=== PATIENT | male | born 1930 | race Caucasian/White ===

== ENCOUNTER 2016-05-04 13:59 | Outpatient (CLI) | payer MEDICARE, OTHER | END 2016-05-04 14:00 | disposition home or self-care (01) | DX: I48.91 Unspecified atrial fibrillation (principal); Z79.01 Long term (current) use of anticoagulants ==

== ENCOUNTER 2016-06-10 11:19 | Outpatient (CLI) | payer MEDICARE, OTHER | END 2016-06-10 11:20 | disposition home or self-care (01) | DX: I48.91 Unspecified atrial fibrillation (principal); Z79.01 Long term (current) use of anticoagulants ==

== ENCOUNTER 2016-07-01 15:53 | Outpatient (CLI) | payer MEDICARE, OTHER | END 2016-07-01 15:54 | disposition home or self-care (01) | DX: I49.9 Cardiac arrhythmia, unspecified (principal); R42 Dizziness and giddiness ==

== ENCOUNTER 2016-07-09 13:25 | Outpatient (CLI) | payer MEDICARE, OTHER | END 2016-07-09 13:26 | disposition home or self-care (01) | DX: I48.91 Unspecified atrial fibrillation (principal); Z79.01 Long term (current) use of anticoagulants ==

== ENCOUNTER 2016-08-03 13:42 | Outpatient (CLI) | payer MEDICARE, OTHER | END 2016-08-03 23:59 | disposition home or self-care (01) | DX: I48.91 Unspecified atrial fibrillation (principal); Z79.01 Long term (current) use of anticoagulants ==

== ENCOUNTER 2016-08-11 09:52 | Outpatient (CLI) | payer MEDICARE, OTHER | END 2016-08-11 09:53 | disposition home or self-care (01) | DX: I48.91 Unspecified atrial fibrillation (principal); Z79.01 Long term (current) use of anticoagulants ==

== ENCOUNTER 2016-08-20 14:35 | Outpatient (CLI) | payer MEDICARE, OTHER | END 2016-08-20 14:36 | disposition home or self-care (01) | LOC: LAB.F 14:35 | PROVIDERS: ATTEND Internal Medicine | DX: I48.91 Unspecified atrial fibrillation (principal); Z79.01 Long term (current) use of anticoagulants | CPT/HCPCS: 85610 ==

== ENCOUNTER 2016-08-27 10:21 | Outpatient (CLI) | payer MEDICARE, OTHER | END 2016-08-27 10:22 | disposition home or self-care (01) | LOC: LAB.F 10:21 | PROVIDERS: ATTEND Internal Medicine | DX: I48.91 Unspecified atrial fibrillation (principal); Z79.01 Long term (current) use of anticoagulants | CPT/HCPCS: 85610 ==

== ENCOUNTER 2016-08-27 15:24 | Outpatient (CLI) | payer MEDICARE, OTHER ==
--- NOTE | 2016-08-28 21:30 | XRAY Report ---
EXAM: BILATERAL SHOULDER RADIOGRAPHY EXAM DATE: 08/27/2016 03:54 PM. CLINICAL HISTORY: SHOULDER PAIN. COMPARISON: None. TECHNIQUE: 3 views each. FINDINGS: Bones: Normal. No fracture or bone lesion. Joints: Mild osteoarthritic changes noted. Soft tissues: The visualized hemithorax is unremarkable. No soft tissue swelling. 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 [facility] Referring Provider Line: [phone] SITE ID: [id number]
== END 2016-08-27 15:25 | disposition home or self-care (01) ==
LOC: DI.S 15:24
PROVIDERS: ATTEND Nurse Practitioner Family
DX: M19.011 Primary osteoarthritis, right shoulder (principal); M19.012 Primary osteoarthritis, left shoulder; I48.91 Unspecified atrial fibrillation; Z79.01 Long term (current) use of anticoagulants
CPT/HCPCS: 85610

== ENCOUNTER 2016-08-28 06:26 | Outpatient (CLI) | payer MEDICARE, OTHER | END 2016-08-28 06:27 | disposition critical access hospital (66) | LOC: EMS 06:26 | PROVIDERS: ATTEND Surgery | DX: R11.2 Nausea with vomiting, unspecified (principal) | CPT/HCPCS: A0425; A0427 ==

== ENCOUNTER 2016-08-28 06:58 | Emergency (ER) | payer MEDICARE, OTHER ==
[2016-08-28 07:53] LABS: BASOPHILS % (AUTO) 0.5 %; EOSINOPHILS # (AUTO) 0.1 10^3/uL (0.0-0.7); EOSINOPHILS % (AUTO) 0.7 %; HCT - HEMATOCRIT 38.8 % (42.0-52.0); HGB - HEMOGLOBIN 13.3 g/dL (14.0-18.0); LYMPHOCYTES % (AUTO) 12.8 %; MEAN CORPUSCULAR HEMOGLOBIN 29.9 pg (27.0-31.0); MEAN CORPUSCULAR HGB CONC 34.4 g/dL (32.0-36.0); MONOCYTES # (AUTO) 0.4 10^3/uL (0.0-1.0); NEUTROPHILS # (AUTO) 6.2 10^3/uL (1.5-6.6); RED BLOOD COUNT 4.45 10^6/uL (4.70-6.10); RED CELL DISTRIBUTION WIDTH 13.9 % (12.0-15.0); UNCORRECTED WHITE BLOOD COUNT 7.7 x10^3/uL; WHITE BLOOD COUNT 7.7 x10^3/uL (4.8-10.8)
[2016-08-28 08:00] LABS: BILIRUBIN,URINE NEGATIVE (NEGATIVE); PH,URINE 6.5 PH (5.0-7.5)
[2016-08-28 08:07] LABS: UA CHARGE (STRIP ONLY) YES; UR CULTURE IF IND NOT INDICATED
[2016-08-28 08:15] LABS: ALBUMIN/GLOBULIN RATIO 1.2 (1.0-2.2); BILIRUBIN,TOTAL 0.8 mg/dL (0.2-1.0); CALCIUM 8.8 mg/dL (8.5-10.3); CREATININE 0.6 mg/dL (0.6-1.2); TOTAL PROTEIN 6.9 g/dL (6.7-8.2)
[2016-08-28 08:19] LABS: INR 5.8 (0.8-1.2)
--- NOTE | 2016-08-28 08:42 | ED Physician Documentation ---
History of Present Illness - Stated complaint Stated Complaint: N/V - Chief complaint Chief Complaint: Abd Pain - Additonal information Additional information: pt is a poor historian and very [place] even with his hearing aids it seems he has a hx afib is on coumadin his INR has been high and he is in the ER for NV and abd pain and generally weak he denies MONTERROSO CP AP right now denies diarrhea denies bloody black BM denies urinary sx no fever denies any falls or HI Review of Systems Constitutional: denies: Fever, Chills Cardiac: denies: Chest pain / pressure Respiratory: denies: Dyspnea, Cough GI: reports: Abdominal Pain, Nausea, Vomiting, Diarrhea. denies: Bloody / black stool : denies: Dysuria Neurologic: reports: Generalized weakness Endocrine: reports: Easy bruising / bleeding Immunocompromised: denies: Immunocompromised PD PAST MEDICAL HISTORY - Past Medical History Cardiovascular: Atrial fibrillation Respiratory: None Neuro: TIA Endocrine/Autoimmune: None GI: GERD : None HEENT: Chronic vision loss, Chronic hearing loss Psych: None Musculoskeletal: None Derm: None - Past Surgical History Past Surgical History: Yes HEENT: Cataracts - Present Medications Home Medications: Ambulatory Orders Medication Instructions Recorded Confirmed Meloxicam 7.5 mg PO DAILY 08/23/12 08/28/16 Omeprazole 20 mg PO DAILY 08/23/12 08/28/16 Warfarin Sodium [Coumadin] 2 mg PO DAILY 08/23/12 08/28/16 [id number] CD [Cardizem Cd] 120 mg PO DAILY 08/23/12 08/28/16 Meclizine [Antivert] 25 mg PO Q6H PRN #20 tablet 11/07/13 08/28/16 Ondansetron HCl [Zofran] 4 mg PO Q6H PRN #15 tablet 11/07/13 08/28/16 Ondansetron Odt [Zofran] 4 mg TL Q6H PRN #10 tablet 08/28/16 - Allergies Allergies/Adverse Reactions: Allergies Allergy/AdvReac Type Severity Reaction Status Date / Time Sulfa (Sulfonamide AdvReac Unknown Anxiety Unverified 08/28/16 10:24 Antibiotics) - Social History Does the pt smoke?: No Smoking Status: Never smoker Does the pt drink ETOH?: Yes Does the pt have substance abuse?: No PD ED PE NORMAL - Vitals Vital signs reviewed: Yes - Neck Neck: Supple, no meningeal sign - Cardiac Cardiac: No: RRR (slightly irreg) - Respiratory Respiratory: No respiratory distress, Clear bilaterally - Abdomen Abdomen: Soft, Non tender - Derm Derm: Warm and dry - Neuro Neuro: Other (alert [place] rambles quite a bit when answering questions but seems orineted) - Psych Psych: Normal mood Results - Vitals Vitals: Vital Signs - 24 hr 08/28/16 08/28/16 06:59 09:19 Temperature 36.1 C L Heart Rate 63 85 Respiratory 16 12 Rate Blood Pressure 141/101 H 107/68 O2 Saturation 95 97 Oxygen O2 Source Room air - Labs Labs: Laboratory Tests 08/28/16 08/28/16 08/28/16 07:47 07:47 07:47 WBC 7.7 RBC 4.45 L Hgb 13.3 L Hct 38.8 L MCV 87.0 MCH 29.9 MCHC 34.4 RDW 13.9 Plt Count 257 MPV 8.0 Neut # 6.2 Lymph # 1.0 L [place] # 0.4 Eos # 0.1 Baso # 0.0 Absolute Nucleated RBC 0.00 Nucleated RBCs 0.0 PT 66.0 H INR 5.8 H* Sodium 138 Potassium 4.0 Chloride 105 Carbon Dioxide 25 Anion Gap 8.0 BUN 16 Creatinine 0.6 Estimated GFR (MDRD) 128 Glucose 129 H Calcium 8.8 Total Bilirubin 0.8 AST 22 ALT 20 Alkaline Phosphatase 35 L Troponin I Total Protein 6.9 Albumin 3.7 Globulin 3.2 Albumin/Globulin Ratio 1.2 Lipase 28 Urine Color Urine Clarity Urine pH Ur Specific [place] Urine Protein Urine Glucose (UA) Urine Ketones Urine Occult Blood Urine Nitrite Urine Bilirubin Urine Urobilinogen Ur Leukocyte Esterase Ur Microscopic Review Urine Culture Comments 08/28/16 08/28/16 07:47 07:50 WBC RBC Hgb Hct MCV MCH MCHC RDW Plt Count MPV Neut # Lymph # [place] # Eos # Baso # Absolute Nucleated RBC Nucleated RBCs PT INR Sodium Potassium Chloride Carbon Dioxide Anion Gap BUN Creatinine Estimated GFR (MDRD) Glucose Calcium Total Bilirubin AST ALT Alkaline Phosphatase Troponin I < 0.04 Total Protein Albumin Globulin Albumin/Globulin Ratio Lipase Urine Color YELLOW Urine Clarity CLEAR Urine pH 6.5 Ur Specific [place] 1.020 Urine Protein NEGATIVE Urine Glucose (UA) NEGATIVE Urine Ketones 40 H Urine Occult Blood NEGATIVE Urine Nitrite NEGATIVE Urine Bilirubin NEGATIVE Urine Urobilinogen 0.2 (NORMAL) Ur Leukocyte Esterase NEGATIVE Ur Microscopic Review NOT INDICATED Urine Culture Comments NOT INDICATED PD MEDICAL DECISION MAKING - ED course ED course: no NV in ER abd benign labs iuncluding cardiac normal CT neg will dc with zofran Departure - Departure Disposition: Home, Self Care Clinical Impression: Vomiting Qualifiers: Vomiting type: unspecified Vomiting Intractability: non-intractable Nausea presence: with nausea Qualified Code(s): R11.2 - Nausea with vomiting, unspecified Condition: Good Instructions: ED Diet Vomiting Diarrhea, ED Abdominal Pain Unkn Cause Prescriptions: Ondansetron Odt [Zofran] 4 mg TL Q6H PRN #10 tablet PRN Reason: Nausea / Vomiting Comments: Your tests are all fine - we did a blood count, checked your liver kidney pancreas functions, checked your electrolytes, checked your heart checked for a urine infection. The only significant abnormality was your high INR which you already knew about - I recommend you do not take your coumadin today or tomorrow and follow up with your PMD for a recheck INR Tuesday Your CT scan was OK too - you have some cysts in your liver and diverticulosis both of which are not new and were seen on prior exams Since you seem to be feeling better and your work up is reassuring, I think it is OK for you to go home with some nausea medication. Please follow up with your PMD for a recheck Tuesday And return if worse in any way - although the work up was reassuring, it does not mean nothing is wrong and if new symptoms develop or you worse, a repeat evaluation might reveal problems not presently apparent. And please follow up with your PMD about your blood pressure - it was high today
--- NOTE | 2016-08-28 10:33 | CT Preliminary Report ---
Exam: CT Abdomen/Pelvis W/O IMPRESSION: 1. Diverticulosis without CT findings of acute diverticulitis. No bowel obstruction, free fluid, free air or abscess. Appendix not seen. 2. Multiple low-density probable liver cysts once again seen. No new liver mass. 3. Hiatal hernia. 4. No acute abnormality seen. Examination otherwise as detailed above. [facility] SITE ID: [id number]
--- NOTE | 2016-08-28 10:36 | CT Report ---
EXAM: CT ABDOMEN AND PELVIS EXAM DATE: 08/28/2016 09:44 AM. CLINICAL HISTORY: Nv weakness. COMPARISONS: Ultrasound 02/28/2007. CT 07/08/2014.. TECHNIQUE: Routine helical CT imaging was performed through the abdomen and pelvis. IV contrast: None . Enteric contrast: No. Reconstructions: Coronal and sagittal. In accordance with CT protocol optimization, one or more of the following dose reduction techniques w ere utilized for this exam: automated exposure control, adjustment of mA and/or KV based on patient s ize, or use of iterative reconstructive technique. FINDINGS: Lung Bases: Hiatal hernia. Otherwise Unremarkable. Liver: Multiple low-attenuation foci are seen in both right and left lobes of liver corresponding to areas of cystic change seen on prior CT. No new liver mass. Gallbladder/Bile Ducts: Unremarkable. Spleen: Calcified granuloma. Otherwise unremarkable. Pancreas: Normal. Adrenal Glands: Normal. Kidneys: Normal. No masses or hydronephrosis. Peritoneal Cavity/Bowel: No bowel obstruction. No mass. No adenopathy. Diffuse diverticulosis greates t in the sigmoid colon. The appendix is not seen. No free fluid. No free air. No acute inflammatory c hange seen. Pelvic Organs: Urinary bladder unremarkable. Prostate and seminal vesicles unremarkable. Vasculature: Calcified atherosclerosis. No aneurysm. Bones: Dextroscoliosis centered at thoracolumbar junction. Diffuse spondylotic changes in thoracic an d lumbar spine. No bone lesions suspicious for malignancy. No acute abnormality. Other: None. IMPRESSION: 1. Diverticulosis without CT findings of acute diverticulitis. No bowel obstruction, free fluid, free air or abscess. Appendix not seen. 2. Multiple low-density probable liver cysts once again seen. No new liver mass. 3. Hiatal hernia. 4. No acute abnormality seen. Examination otherwise as detailed above. [facility] Referring Provider Line: [phone] SITE ID: [id number]
[2016-08-28 11:53] VITALS: BP 122/66
== END 2016-08-28 12:09 | disposition home or self-care (01) ==
LOC: EDUNIT# → ED 06:58
DX: R11.2 Nausea with vomiting, unspecified (principal); I48.91 Unspecified atrial fibrillation; Z79.01 Long term (current) use of anticoagulants; Z86.73 Personal history of transient ischemic attack (TIA), and cerebral infarction without residual deficits; K21.9 Gastro-esophageal reflux disease without esophagitis
CPT/HCPCS: 36415; 74176; 80053; 81001; 81003; 83690; 84484; 85025; 85610; 87086; 99283; 99284

== ENCOUNTER 2016-08-30 13:23 | Outpatient (CLI) | payer MEDICARE, OTHER | END 2016-08-30 13:24 | disposition home or self-care (01) | LOC: LAB.F 13:23 | PROVIDERS: ATTEND Internal Medicine | DX: I48.91 Unspecified atrial fibrillation (principal); Z79.01 Long term (current) use of anticoagulants | CPT/HCPCS: 85610 ==

== ENCOUNTER 2016-09-02 10:29 | Outpatient (CLI) | payer MEDICARE, OTHER | END 2016-09-02 10:30 | disposition home or self-care (01) | LOC: LAB.F 10:29 | PROVIDERS: ATTEND Internal Medicine | DX: I48.91 Unspecified atrial fibrillation (principal); Z79.01 Long term (current) use of anticoagulants | CPT/HCPCS: 85610 ==

== ENCOUNTER 2016-09-07 11:17 | Outpatient (CLI) | payer MEDICARE, OTHER ==
[2016-09-08 10:39] LABS: PSA FREE 1.45 ng/mL (0.16-2.81)
[2016-09-08 10:59] LABS: PSA TOTAL 11.11 ng/mL (0.000-2.000)
== END 2016-09-07 11:18 | disposition home or self-care (01) ==
LOC: LAB.F 11:17
PROVIDERS: ATTEND Internal Medicine
DX: I48.91 Unspecified atrial fibrillation (principal); R35.0 Frequency of micturition; Z12.5 Encounter for screening for malignant neoplasm of prostate; M79.1 Myalgia; Z79.01 Long term (current) use of anticoagulants
CPT/HCPCS: 36415; 84154; 85610; 85651; G0103; 84153

== ENCOUNTER 2016-09-14 13:48 | Outpatient (CLI) | payer MEDICARE, OTHER | END 2016-09-14 13:49 | disposition home or self-care (01) | LOC: LAB.F 13:48 | PROVIDERS: ATTEND Internal Medicine | DX: I48.91 Unspecified atrial fibrillation (principal); Z79.01 Long term (current) use of anticoagulants | CPT/HCPCS: 85610 ==

== ENCOUNTER 2016-09-21 10:36 | Outpatient (CLI) | payer MEDICARE, OTHER | END 2016-09-21 10:37 | disposition home or self-care (01) | LOC: LAB.F 10:36 | PROVIDERS: ATTEND Internal Medicine | DX: I48.91 Unspecified atrial fibrillation (principal); Z79.01 Long term (current) use of anticoagulants | CPT/HCPCS: 85610 ==

== ENCOUNTER 2016-09-28 09:33 | Outpatient (CLI) | payer MEDICARE, OTHER | END 2016-09-28 09:34 | disposition home or self-care (01) | LOC: LAB.F 09:33 | PROVIDERS: ATTEND Internal Medicine | DX: I48.91 Unspecified atrial fibrillation (principal); Z79.01 Long term (current) use of anticoagulants | CPT/HCPCS: 85610 ==

== ENCOUNTER 2016-10-05 11:06 | Outpatient (CLI) | payer MEDICARE, OTHER | END 2016-10-05 11:07 | disposition home or self-care (01) | LOC: LAB.F 11:06 | PROVIDERS: ATTEND Internal Medicine | DX: I48.91 Unspecified atrial fibrillation (principal); Z79.01 Long term (current) use of anticoagulants | CPT/HCPCS: 85610 ==

== ENCOUNTER 2016-10-13 10:21 | Outpatient (CLI) | payer MEDICARE, OTHER | END 2016-10-13 10:22 | disposition home or self-care (01) | LOC: LAB.F 10:21 | PROVIDERS: ATTEND Internal Medicine | DX: I48.91 Unspecified atrial fibrillation (principal); Z79.01 Long term (current) use of anticoagulants | CPT/HCPCS: 85610 ==

== ENCOUNTER 2016-10-15 08:58 | Outpatient (CLI) | payer MEDICARE, OTHER | END 2016-10-15 08:59 | disposition home or self-care (01) | LOC: LAB.F 08:58 | PROVIDERS: ATTEND Internal Medicine | DX: I48.91 Unspecified atrial fibrillation (principal) | CPT/HCPCS: 85610 ==

== ENCOUNTER 2016-10-18 10:34 | Outpatient (CLI) | payer MEDICARE, OTHER | END 2016-10-18 10:35 | disposition home or self-care (01) | LOC: LAB.F 10:34 | PROVIDERS: ATTEND Internal Medicine | DX: I48.91 Unspecified atrial fibrillation (principal) | CPT/HCPCS: 85610 ==

== ENCOUNTER 2016-10-21 12:40 | Outpatient (CLI) | payer MEDICARE, OTHER | END 2016-10-21 12:41 | disposition home or self-care (01) | LOC: LAB.F 12:40 | PROVIDERS: ATTEND Internal Medicine | DX: I48.91 Unspecified atrial fibrillation (principal); Z79.01 Long term (current) use of anticoagulants; M35.3 Polymyalgia rheumatica | CPT/HCPCS: 36415; 85610; 85651; 86140 ==

== ENCOUNTER 2016-10-28 10:19 | Outpatient (CLI) | payer MEDICARE, OTHER ==
[2016-10-28] MEDS ORDERED: LIDOCAINE 1% 50 ML MDV SUBQ ONE (11:43)
[2016-10-28] MEDS ORDERED: IOTHALAMATE MEGLUMINE 50 ML VIAL IVP ONE (11:43)
[2016-10-28] MEDS ORDERED: methylPREDNISolone ACETATE 40 MG/ML VIAL IM ONE (11:43)
--- NOTE | 2016-10-29 10:08 | XRAY Report ---
FLUOROSCOPIC INJECTION OF THE LEFT HIP JOINT WITH LOCAL ANESTHETIC AND DEPO-MEDROL 40 M10/28/2016 CLINICAL HISTORY: Patient has bilateral hip pain. Present exam is only a unilateral hip joint injec tion within the left hip under fluoroscopic guidance. TECHNIQUE: In discussing the procedure with the patient, he indicated he would prefer to only have t he left hip injected today. The left hip was the side that was most painful. FINDINGS: A PAR conference was held and informed consent was obtained. Patient's left hip was steri annmarie prepped with Betadine and Chloraprep. Sterile technique was used throughout the exam. A total of 10 mL of 1% Xylocaine was used in the skin and subcutaneous tissues of the left hip. Under fluoro scopic guidance, a 20 gauge 3-1/2 inch needle was placed into the left hip joint. Conray-60, 1 mL, w as injected and outlined the left hip joint. Following this, a mixture of 7 mL of 1% Xylocaine and 1 mL of Depo-Medrol 40 mg per mL was injected into the left hip joint. As soon as the injection was c ompleted, the patient was taken off the fluoroscopic table and briefly walked around the room. He no es significant symptomatic relief of his left hip pain. This further documented that the hip joint injection was successful. One image was taken to verify the successful entrance of the needle into the left hip joint. A total of 44 seconds was used for fluoroscopy. IMPRESSION: SUCCESSFUL LEFT HIP JOINT INJECTION UNDER FLUOROSCOPIC GUIDANCE. A TOTAL OF 7 ML OF 1% XYLOCAINE AND 1 ML OF DEPO-MEDROL 40 MG/ML WAS INJECTED INTO THE LEFT HIP JOINT. THE PATIENT NOTED I MMEDIATE RELIEF. JOB #: [id number] EXT JOB #:[id number]
== END 2016-10-28 10:20 | disposition home or self-care (01) ==
LOC: DI 10:19
PROVIDERS: ATTEND Orthopaedic Surgery
DX: M16.0 Bilateral primary osteoarthritis of hip (principal); I48.91 Unspecified atrial fibrillation; Z79.01 Long term (current) use of anticoagulants
CPT/HCPCS: 20610; 77002; 85610; J1030; Q9961

== ENCOUNTER 2016-10-28 14:25 | Outpatient (CLI) | payer MEDICARE, OTHER | END 2016-10-28 14:26 | disposition home or self-care (01) | LOC: LAB.F 14:25 | PROVIDERS: ATTEND Internal Medicine | DX: I48.91 Unspecified atrial fibrillation (principal); Z79.01 Long term (current) use of anticoagulants | CPT/HCPCS: 85610 ==

== ENCOUNTER 2016-11-04 11:01 | Outpatient (CLI) | payer MEDICARE, OTHER | END 2016-11-04 11:02 | disposition home or self-care (01) | LOC: LAB.F 11:01 | PROVIDERS: ATTEND Internal Medicine | DX: I48.91 Unspecified atrial fibrillation (principal); Z79.01 Long term (current) use of anticoagulants | CPT/HCPCS: 85610 ==

== ENCOUNTER 2016-11-11 13:51 | Outpatient (CLI) | payer MEDICARE, OTHER | END 2016-11-11 13:52 | disposition home or self-care (01) | LOC: LAB.F 13:51 | PROVIDERS: ATTEND Internal Medicine | DX: I48.91 Unspecified atrial fibrillation (principal); Z79.01 Long term (current) use of anticoagulants | CPT/HCPCS: 85610 ==

== ENCOUNTER 2016-11-15 13:08 | Outpatient (CLI) | payer MEDICARE, OTHER | END 2016-11-15 13:09 | disposition home or self-care (01) | LOC: SC 13:08 | PROVIDERS: ATTEND Internal Medicine Pulmonary Disease | DX: R06.81 Apnea, not elsewhere classified (principal); R06.83 Snoring; G47.10 Hypersomnia, unspecified; G31.84 Mild cognitive impairment of uncertain or unknown etiology | CPT/HCPCS: 99203; G0463; 99212 ==

== ENCOUNTER 2016-11-19 13:39 | Outpatient (CLI) | payer MEDICARE, OTHER | END 2016-11-19 13:40 | disposition home or self-care (01) | LOC: LAB.F 13:39 | PROVIDERS: ATTEND Internal Medicine | DX: I48.91 Unspecified atrial fibrillation (principal); Z79.01 Long term (current) use of anticoagulants | CPT/HCPCS: 85610 ==

== ENCOUNTER 2016-11-26 13:16 | Outpatient (CLI) | payer MEDICARE, OTHER | END 2016-11-26 13:17 | disposition home or self-care (01) | LOC: LAB.F 13:16 | PROVIDERS: ATTEND Internal Medicine | DX: I48.91 Unspecified atrial fibrillation (principal); Z79.01 Long term (current) use of anticoagulants | CPT/HCPCS: 85610 ==

== ENCOUNTER 2016-12-10 10:38 | Outpatient (CLI) | payer MEDICARE, OTHER | END 2016-12-10 10:39 | disposition home or self-care (01) | LOC: LAB.F 10:38 | PROVIDERS: ATTEND Internal Medicine | DX: I48.91 Unspecified atrial fibrillation (principal); Z79.01 Long term (current) use of anticoagulants | CPT/HCPCS: 85610 ==

== ENCOUNTER 2016-12-24 14:35 | Outpatient (CLI) | payer MEDICARE, OTHER | END 2016-12-24 14:36 | disposition home or self-care (01) | LOC: LAB.F 14:35 | PROVIDERS: ATTEND Internal Medicine | DX: I48.91 Unspecified atrial fibrillation (principal); Z79.01 Long term (current) use of anticoagulants | CPT/HCPCS: 85610 ==

== ENCOUNTER 2017-01-11 20:08 | Outpatient (CLI) | payer MEDICARE, OTHER | END 2017-01-11 20:09 | disposition home or self-care (01) | LOC: SC 20:08 | PROVIDERS: ATTEND Internal Medicine Pulmonary Disease | DX: G47.33 Obstructive sleep apnea (adult) (pediatric) (principal); G47.61 Periodic limb movement disorder; I48.91 Unspecified atrial fibrillation; Z68.27 Body mass index [BMI] 27.0-27.9, adult | CPT/HCPCS: 95810 ==

== ENCOUNTER 2017-01-21 13:06 | Outpatient (CLI) | payer MEDICARE, OTHER | END 2017-01-21 13:07 | disposition home or self-care (01) | LOC: LAB.F 13:06 | PROVIDERS: ATTEND Internal Medicine | DX: I48.91 Unspecified atrial fibrillation (principal); Z79.01 Long term (current) use of anticoagulants | CPT/HCPCS: 85610 ==

== ENCOUNTER 2017-01-25 14:07 | Outpatient (CLI) | payer MEDICARE, OTHER | END 2017-01-25 14:08 | disposition home or self-care (01) | LOC: SC 14:07 | PROVIDERS: ATTEND Nurse Practitioner Family | DX: G47.33 Obstructive sleep apnea (adult) (pediatric) (principal); G47.61 Periodic limb movement disorder; I48.91 Unspecified atrial fibrillation | CPT/HCPCS: 99214; G0463; 99212 ==

== ENCOUNTER 2017-01-28 12:34 | Outpatient (CLI) | payer MEDICARE, OTHER | END 2017-01-28 12:35 | disposition home or self-care (01) | LOC: LAB.F 12:34 | PROVIDERS: ATTEND Internal Medicine | DX: I48.91 Unspecified atrial fibrillation (principal); Z79.01 Long term (current) use of anticoagulants | CPT/HCPCS: 85610 ==

== ENCOUNTER 2017-02-04 15:16 | Outpatient (CLI) | payer MEDICARE, OTHER | END 2017-02-04 15:17 | disposition home or self-care (01) | LOC: LAB.F 15:16 | PROVIDERS: ATTEND Internal Medicine | DX: I48.91 Unspecified atrial fibrillation (principal); Z79.01 Long term (current) use of anticoagulants | CPT/HCPCS: 85610 ==

== ENCOUNTER 2017-02-25 23:21 | Outpatient (CLI) | payer MEDICARE, OTHER | END 2017-02-25 23:22 | disposition critical access hospital (66) | LOC: EMS 23:21 | PROVIDERS: ATTEND Surgery | DX: R42 Dizziness and giddiness (principal); R11.2 Nausea with vomiting, unspecified | CPT/HCPCS: A0425; A0427 ==

== ENCOUNTER 2017-02-25 23:51 | Emergency (ER) | payer MEDICARE, OTHER ==
[2017-02-26] MEDS ORDERED: ONDANSETRON 4 MG/2 ML VIAL IVP STA
[2017-02-26] MEDS ORDERED: SODIUM CHLORIDE 0.9% 500 ML IV ONE
[2017-02-26] MEDS ORDERED: ONDANSETRON 4 MG/2 ML VIAL ONE (00:09)
[2017-02-26 00:20] LABS: BASOPHILS # (AUTO) 0.1 10^3/uL (0.0-0.1); BASOPHILS % (AUTO) 0.6 %; EOSINOPHILS # (AUTO) 0.2 10^3/uL (0.0-0.7); EOSINOPHILS % (AUTO) 1.9 %; HCT - HEMATOCRIT 42.7 % (42.0-52.0); HGB - HEMOGLOBIN 14.5 g/dL (14.0-18.0); LYMPHOCYTES # (AUTO) 2.3 10^3/uL (1.5-3.5); LYMPHOCYTES % (AUTO) 26.9 %; MEAN CORPUSCULAR HEMOGLOBIN 30.4 pg (27.0-31.0); MEAN CORPUSCULAR HGB CONC 33.9 g/dL (32.0-36.0); MEAN CORPUSCULAR VOLUME 89.7 fL (80.0-94.0); MEAN PLATELET VOLUME 8.6 fL (7.4-11.4); MONOCYTES # (AUTO) 0.7 10^3/uL (0.0-1.0); MONOCYTES % (AUTO) 8.2 %; NEUTROPHILS # (AUTO) 5.3 10^3/uL (1.5-6.6); NEUTROPHILS % (AUTO) 62.4 %; RED BLOOD COUNT 4.76 10^6/uL (4.70-6.10); RED CELL DISTRIBUTION WIDTH 15.2 % (12.0-15.0); UNCORRECTED WHITE BLOOD COUNT 8.4 x10^3/uL; WHITE BLOOD COUNT 8.4 x10^3/uL (4.8-10.8)
[2017-02-26 00:31] LABS: ALBUMIN/GLOBULIN RATIO 1.4 (1.0-2.2); BILIRUBIN,TOTAL 0.5 mg/dL (0.2-1.0); CREATININE 0.8 mg/dL (0.6-1.2); POTASSIUM 3.7 mmol/L (3.5-5.0); TOTAL PROTEIN 6.4 g/dL (6.7-8.2)
--- NOTE | 2017-02-26 01:04 | ED Physician Documentation ---
PD HPI NVD - Stated complaint Stated Complaint: N/V/DIZZINESS - Chief complaint Chief Complaint: Abd Pain - History obtained from History obtained from: Patient - History of Present Illness Timing - onset: Today Timing - details: Abrupt onset, Now resolved Associated symptoms: Dizzy. No: Abdominal pain, Hematemesis Contributing factors: Bad food Improved by: Vomiting Worsened by: Position Similar symptoms before: No diagnosis Recently seen: Not recently seen - Additonal information Additional information: Patient is an 86 year old male who was brought into the emergency department for nausea, vomiting diarrhea and dizziness. patient states that tonight he had a few beers, and for dinner he had fish. When he was getting ready to go to bed, he had two episodes of vomiting and and episode of diarrhea. During that time patient felt dizzy, but he did not pass out. Upon initial evaluation in the emergency department patient stated that he was feeling better. Review of Systems Constitutional: denies: Fever, Chills Eyes: denies: Loss of vision, Photophobia Ears: denies: Ear pain, Drainage/discharge Nose: denies: Rhinorrhea / runny nose, Congestion Throat: reports: Reviewed and negative Cardiac: denies: Chest pain / pressure, Palpitations Respiratory: denies: Dyspnea, Cough, Wheezing GI: reports: Abdominal Pain, Nausea, Vomiting, Diarrhea : denies: Dysuria, Frequency Skin: denies: Rash, Lesions Musculoskeletal: denies: Neck pain, Back pain Neurologic: denies: Generalized weakness, Focal weakness, Syncope Immunocompromised: denies: Immunocompromised PD PAST MEDICAL HISTORY - Past Medical History Past Medical History: Yes Cardiovascular: Atrial fibrillation Respiratory: None Neuro: TIA Endocrine/Autoimmune: None GI: GERD : None HEENT: Chronic vision loss, Chronic hearing loss Psych: None Musculoskeletal: None Derm: None - Past Surgical History Past Surgical History: Yes HEENT: Cataracts - Present Medications Home Medications: Ambulatory Orders Medication Instructions Recorded Confirmed Omeprazole 20 mg PO DAILY 08/23/12 02/26/17 Warfarin Sodium [Coumadin] 2 mg PO DAILY 08/23/12 02/26/17 [email or web address] CD [Cardizem Cd] 120 mg PO DAILY 08/23/12 02/26/17 Prednisone 1 tab PO DAILY 02/25/17 02/26/17 Ondansetron Odt [Zofran] 4 mg TL Q6H PRN #14 tablet 02/26/17 - Allergies Allergies/Adverse Reactions: Allergies Allergy/AdvReac Type Severity Reaction Status Date / Time Sulfa (Sulfonamide AdvReac Unknown Anxiety Verified 02/26/17 00:02 Antibiotics) - Social History Does the pt smoke?: No Smoking Status: Never smoker Does the pt drink ETOH?: Yes Does the pt have substance abuse?: No PD ED PE NORMAL - Vitals Vital signs reviewed: Yes - General General: Alert and oriented X 3, No acute distress, Well developed/nourished - HEENT HEENT: Atraumatic, PERRL, Pharynx benign - Neck Neck: Supple, no meningeal sign, No JVD - Cardiac Cardiac: No murmur, No rub - Respiratory Respiratory: No respiratory distress, Clear bilaterally - Abdomen Abdomen: Soft, Non tender, Non distended - Derm Derm: Normal color, Warm and dry, No rash - Extremities Extremities: No deformity, No tenderness to palpate, Normal ROM s pain, No edema - Neuro Neuro: Alert and oriented X 3, physicians and surgeons 2-12 intact, No motor deficit, No sensory deficit Eye Opening: Spontaneous Motor: Obeys Commands Verbal: Oriented GCS Score: 15 - Psych Psych: Normal mood, Normal affect PD ED PE EXPANDED - Cardiac Cardiac: Irregularly irregular Results - Vitals Vitals: Vital Signs - 24 hr 02/25/17 02/26/17 02/26/17 23:51 00:03 00:56 Temperature 36.4 C L Heart Rate 68 81 Heart Rate [ 91 Sitting] Heart Rate [ 85 Standing] Heart Rate [ 85 Supine] Respiratory 18 16 Rate Blood Pressure 130/73 120/63 Blood Pressure 130/83 H [Sitting] Blood Pressure 132/72 H [Standing] Blood Pressure 119/82 H [Supine] O2 Saturation 97 97 Oxygen O2 Source Room air - Labs Labs: Laboratory Tests 02/26/17 02/26/17 02/26/17 00:10 00:10 00:10 WBC 8.4 RBC 4.76 Hgb 14.5 Hct 42.7 MCV 89.7 MCH 30.4 MCHC 33.9 RDW 15.2 H Plt Count 167 MPV 8.6 Neut # 5.3 Lymph # 2.3 [place] # 0.7 Eos # 0.2 Baso # 0.1 Absolute Nucleated RBC 0.00 Nucleated RBC % 0.0 Sodium 137 Potassium 3.7 Chloride 104 Carbon Dioxide 22 Anion Gap 11.0 BUN 21 H Creatinine 0.8 Estimated GFR (MDRD) 92 Glucose 118 H Calcium 9.0 Total Bilirubin 0.5 AST 26 ALT 22 Alkaline Phosphatase 41 L Troponin I < 0.04 Total Protein 6.4 L Albumin 3.7 Globulin 2.7 Albumin/Globulin Ratio 1.4 Lipase 36 PD MEDICAL DECISION MAKING - ED course Complexity details: reviewed old records, reviewed results, re-evaluated patient , considered differential, d/w patient ED course: Patient was seen and examined at bedside. IV access was gained and labs were drawn. patient was treated with a fluid bolus and zofran. patient stated that he felt much better. Patient's diagnostics were within normal limits. Patient required no further work up and was stable for discharge with outpatient follow up. Departure - Departure Disposition: 01 Home, Self Care Clinical Impression: Gastroenteritis Condition: Good Instructions: ED Gastroenteritis Bacterial Follow-Up: primary,care provider [Other] - Within 3 Days Prescriptions: Ondansetron Odt [Zofran] 4 mg TL Q6H PRN #14 tablet PRN Reason: Nausea / Vomiting Comments: Your symptoms today were likely secondary to gastroenteritis that was bacterial in nature. It is normally self limited meaning that it should get better on its own. You should take the zofran for nausea and make sure you stay well hydrated. You should follow up with your doctor if your symptoms don't resolve. You may return to the emergency department at any time for new, worsening or uncontrollable symptoms.
[2017-02-26 01:48] VITALS: BP 125/72
== END 2017-02-26 01:51 | disposition home or self-care (01) ==
LOC: EDUNIT# → ED 23:51
DX: K52.9 Noninfective gastroenteritis and colitis, unspecified (principal); I48.91 Unspecified atrial fibrillation; Z79.01 Long term (current) use of anticoagulants; Z86.73 Personal history of transient ischemic attack (TIA), and cerebral infarction without residual deficits
CPT/HCPCS: 36415; 80053; 83690; 84484; 85025; 96361; 96374; 99284

== ENCOUNTER 2017-03-13 20:33 | Outpatient (CLI) | payer MEDICARE, OTHER | END 2017-03-13 20:34 | disposition home or self-care (01) | LOC: SC 20:33 | PROVIDERS: ATTEND Internal Medicine Pulmonary Disease | DX: G47.33 Obstructive sleep apnea (adult) (pediatric) (principal); G47.61 Periodic limb movement disorder | CPT/HCPCS: 95811 ==

== ENCOUNTER 2017-03-14 13:20 | Outpatient (CLI) | payer MEDICARE, OTHER | END 2017-03-14 13:21 | disposition home or self-care (01) | LOC: LAB.F 13:20 | PROVIDERS: ATTEND Internal Medicine | DX: I48.91 Unspecified atrial fibrillation (principal); Z79.01 Long term (current) use of anticoagulants | CPT/HCPCS: 85610 ==

== ENCOUNTER 2017-03-21 13:14 | Outpatient (CLI) | payer MEDICARE, OTHER | END 2017-03-21 13:15 | disposition home or self-care (01) | LOC: SC 13:14 | PROVIDERS: ATTEND Internal Medicine Pulmonary Disease | DX: G47.33 Obstructive sleep apnea (adult) (pediatric) (principal) | CPT/HCPCS: 99213; G0463; 99212 ==

== ENCOUNTER 2017-04-07 13:31 | Outpatient (CLI) | payer MEDICARE, OTHER | END 2017-04-07 13:32 | disposition home or self-care (01) | LOC: LAB.F 13:31 | PROVIDERS: ATTEND Internal Medicine | DX: I48.91 Unspecified atrial fibrillation (principal) | CPT/HCPCS: 85610 ==

== ENCOUNTER 2017-04-15 14:28 | Outpatient (CLI) | payer MEDICARE, OTHER | END 2017-04-15 14:29 | disposition home or self-care (01) | LOC: LAB.F 14:28 | PROVIDERS: ATTEND Internal Medicine | DX: I48.91 Unspecified atrial fibrillation (principal); Z79.01 Long term (current) use of anticoagulants | CPT/HCPCS: 85610 ==

== ENCOUNTER 2017-04-29 08:00 | Outpatient (CLI) | payer MEDICARE, OTHER | END 2017-04-29 08:01 | disposition home or self-care (01) | LOC: LAB.F 08:00 | PROVIDERS: ATTEND Internal Medicine | DX: I48.91 Unspecified atrial fibrillation (principal); Z79.01 Long term (current) use of anticoagulants | CPT/HCPCS: 85610 ==

== ENCOUNTER 2017-05-12 13:15 | Outpatient (CLI) | payer MEDICARE, OTHER | END 2017-05-12 13:16 | disposition home or self-care (01) | LOC: LAB.F 13:15 | PROVIDERS: ATTEND Internal Medicine | DX: I48.91 Unspecified atrial fibrillation (principal); Z79.01 Long term (current) use of anticoagulants | CPT/HCPCS: 85610 ==

== ENCOUNTER 2017-06-03 13:47 | Outpatient (CLI) | payer MEDICARE, OTHER | END 2017-06-03 13:48 | disposition home or self-care (01) | LOC: LAB.F 13:47 | PROVIDERS: ATTEND Internal Medicine | DX: I48.91 Unspecified atrial fibrillation (principal); Z79.01 Long term (current) use of anticoagulants | CPT/HCPCS: 85610 ==

== ENCOUNTER 2017-06-16 08:00 | Outpatient (CLI) | payer MEDICARE, OTHER | END 2017-06-16 08:01 | disposition home or self-care (01) | LOC: LAB.F 08:00 | PROVIDERS: ATTEND Internal Medicine | DX: I48.91 Unspecified atrial fibrillation (principal); Z79.01 Long term (current) use of anticoagulants | CPT/HCPCS: 85610 ==

== ENCOUNTER 2017-06-23 13:25 | Outpatient (CLI) | payer MEDICARE, OTHER | END 2017-06-23 13:26 | disposition home or self-care (01) | LOC: LAB.F 13:25 | PROVIDERS: ATTEND Internal Medicine | DX: I48.91 Unspecified atrial fibrillation (principal); Z79.01 Long term (current) use of anticoagulants | CPT/HCPCS: 85610 ==

== ENCOUNTER 2017-07-07 13:52 | Outpatient (CLI) | payer MEDICARE, OTHER | END 2017-07-07 13:53 | disposition home or self-care (01) | LOC: LAB.F 13:52 | PROVIDERS: ATTEND Internal Medicine | DX: I48.91 Unspecified atrial fibrillation (principal); Z79.01 Long term (current) use of anticoagulants | CPT/HCPCS: 85610 ==

== ENCOUNTER 2017-07-12 10:28 | Outpatient (CLI) | payer MEDICARE, OTHER ==
--- NOTE | 2017-07-12 12:47 | XRAY Report ---
CHEST X-RAY TWO VIEWS: 07/12/2017 HISTORY: Productive cough. COMPARISON: None. FINDINGS: Heart size is top normal to borderline. Lungs clear. No pleural effusion or pneumothorax. Age-related changes in the spine. IMPRESSION: CLEAR LUNGS. NO ACUTE FINDINGS. TD: 07/12/2017 12:46
== END 2017-07-12 10:29 | disposition home or self-care (01) ==
LOC: DI 10:28
PROVIDERS: ATTEND Nurse Practitioner Family
DX: R05 Cough (principal); R06.02 Shortness of breath
CPT/HCPCS: 71046

== ENCOUNTER 2017-07-22 09:18 | Outpatient (CLI) | payer MEDICARE, OTHER | END 2017-07-22 09:19 | disposition home or self-care (01) | LOC: LAB.F 09:18 | PROVIDERS: ATTEND Internal Medicine | DX: I48.91 Unspecified atrial fibrillation (principal); Z79.01 Long term (current) use of anticoagulants | CPT/HCPCS: 85610 ==

== ENCOUNTER 2017-08-12 10:20 | Outpatient (CLI) | payer MEDICARE, OTHER | END 2017-08-12 10:21 | disposition home or self-care (01) | LOC: LAB.F 10:20 | PROVIDERS: ATTEND Internal Medicine | DX: I48.91 Unspecified atrial fibrillation (principal); Z79.01 Long term (current) use of anticoagulants | CPT/HCPCS: 85610 ==

== ENCOUNTER 2017-08-19 10:10 | Outpatient (CLI) | payer MEDICARE, OTHER | END 2017-08-19 10:11 | disposition home or self-care (01) | LOC: LAB.F 10:10 | PROVIDERS: ATTEND Internal Medicine | DX: I48.91 Unspecified atrial fibrillation (principal); Z79.01 Long term (current) use of anticoagulants | CPT/HCPCS: 85610 ==

== ENCOUNTER 2017-08-26 14:09 | Outpatient (CLI) | payer MEDICARE, OTHER | END 2017-08-26 14:10 | disposition home or self-care (01) | LOC: LAB.F 14:09 | PROVIDERS: ATTEND Internal Medicine | DX: I48.91 Unspecified atrial fibrillation (principal); Z79.01 Long term (current) use of anticoagulants | CPT/HCPCS: 85610 ==

== ENCOUNTER 2017-09-09 13:50 | Outpatient (CLI) | payer MEDICARE, OTHER | END 2017-09-09 13:51 | disposition home or self-care (01) | LOC: LAB.F 13:50 | PROVIDERS: ATTEND Internal Medicine | DX: I48.91 Unspecified atrial fibrillation (principal); Z79.01 Long term (current) use of anticoagulants | CPT/HCPCS: 85610 ==

== ENCOUNTER 2017-09-16 14:50 | Outpatient (CLI) | payer MEDICARE, OTHER | END 2017-09-16 14:51 | disposition home or self-care (01) | LOC: LAB.F 14:50 | PROVIDERS: ATTEND Internal Medicine | DX: I48.91 Unspecified atrial fibrillation (principal); Z79.01 Long term (current) use of anticoagulants | CPT/HCPCS: 85610 ==

== ENCOUNTER 2017-09-26 09:27 | Outpatient (CLI) | payer MEDICARE, OTHER | END 2017-09-26 09:28 | disposition home or self-care (01) | LOC: LAB.F 09:27 | PROVIDERS: ATTEND Internal Medicine | DX: I48.91 Unspecified atrial fibrillation (principal); Z79.01 Long term (current) use of anticoagulants | CPT/HCPCS: 85610 ==

== ENCOUNTER 2017-10-07 10:09 | Outpatient (CLI) | payer MEDICARE, OTHER | END 2017-10-07 10:10 | disposition home or self-care (01) | LOC: LAB.F 10:09 | PROVIDERS: ATTEND Internal Medicine | DX: I48.91 Unspecified atrial fibrillation (principal); Z79.01 Long term (current) use of anticoagulants | CPT/HCPCS: 85610 ==

== ENCOUNTER 2017-10-11 21:02 | Outpatient (CLI) | payer MEDICARE, OTHER | END 2017-10-11 21:03 | disposition critical access hospital (66) | LOC: EMS 21:02 | PROVIDERS: ATTEND Surgery | DX: R42 Dizziness and giddiness (principal); R11.2 Nausea with vomiting, unspecified | CPT/HCPCS: A0425; A0427 ==

== ENCOUNTER 2017-10-11 21:38 | Emergency (ER) | payer MEDICARE, OTHER ==
--- NOTE | 2017-10-11 22:25 | ED Physician Documentation ---
History of Present Illness - Stated complaint Stated Complaint: DIZZINESS - Chief complaint Chief Complaint: Neuro - History obtained from History obtained from: Patient, Family (spouse (in ED at bedside)) - History of Present Illness Timing: How many weeks ago (episodic x 1 week) Pain level max: 0 Pain level now: 0 Improved by: rest Worsened by: movement - Additonal information Additional information: HPI/ROS is challenging due to patient very [place]. He describes one week of episodes of "dizziness" (per patient). He says he had an episode tonight while working in his barn, and that he "had to crawl back" to the house because of the symptoms. However, at times he describes a spinning sensation "like I was going around in a huslia" (per patient), but then says he felt lightheaded. He also says he had left-sided weakness, predominantly LLE. Again, it is not clear if he had difficulty standing due to dizziness, weakness , or both. says patient has Meniere's disease. says patient's behavior tonight, including in ED, is normal for him Review of Systems Constitutional: reports: Reviewed and negative Eyes: reports: Reviewed and negative Cardiac: reports: Reviewed and negative Respiratory: reports: Reviewed and negative GI: reports: Reviewed and negative Neurologic: reports: Focal weakness. denies: Generalized weakness, Numbness, Confused, Altered mental status, Headache PD PAST MEDICAL HISTORY - Past Medical History Past Medical History: Yes Cardiovascular: Atrial fibrillation Respiratory: None Endocrine/Autoimmune: None GI: GERD : None HEENT: Chronic vision loss, Chronic hearing loss Psych: None Musculoskeletal: None Derm: None - Past Surgical History Past Surgical History: Yes HEENT: Cataracts - Present Medications Home Medications: Ambulatory Orders Medication Instructions Recorded Confirmed Omeprazole 20 mg PO DAILY 08/23/12 02/26/17 Warfarin Sodium [Coumadin] 2 mg PO DAILY 08/23/12 02/26/17 [email or web address] CD [Cardizem Cd] 120 mg PO DAILY 08/23/12 02/26/17 Prednisone 1 tab PO DAILY 02/25/17 02/26/17 Meclizine [Antivert] 12.5 - 25 mg PO Q6H PRN #20 tablet 10/12/17 - Allergies Allergies/Adverse Reactions: Allergies Allergy/AdvReac Type Severity Reaction Status Date / Time Sulfa (Sulfonamide AdvReac Unknown Anxiety Verified 10/11/17 21:46 Antibiotics) - Social History Does the pt smoke?: No Smoking Status: Never smoker Does the pt drink ETOH?: Yes Does the pt have substance abuse?: No - Immunizations Immunizations are current?: Yes - POLST Patient has POLST: No PD ED PE NORMAL - Vitals Vital signs reviewed: Yes - General General: Alert and oriented X 3, No acute distress, Well developed/nourished - HEENT HEENT: PERRL, EOMI (no nystagmus (left, right lateral gazes tested)), Moist mucous membranes - Neck Neck: Supple, no meningeal sign - Cardiac Cardiac: No murmur - Respiratory Respiratory: No respiratory distress, Clear bilaterally - Abdomen Abdomen: Soft, Non tender, Non distended - Extremities Extremities: Normal ROM s pain, No edema - Neuro Neuro: Alert and oriented X 3, lead software development engineer 2-12 intact, No motor deficit, No sensory deficit Eye Opening: Spontaneous Motor: Obeys Commands Verbal: Oriented GCS Score: 15 PD ED PE EXPANDED - Cardiac Cardiac: Irregularly irregular Results - Vitals Vitals: Vital Signs - 24 hr 10/11/17 10/12/17 21:38 00:40 Temperature 36.8 C 36.6 C Heart Rate 71 68 Respiratory 16 18 Rate Blood Pressure 155/98 H 140/91 H O2 Saturation 96 97 Oxygen O2 Source Room air - EKG (time done) No standard instances Rate: Rate (enter#) (80) Rhythm: Atrial fibrillation [place]: Normal Intervals: RBBB QRS: Normal Other comments: Other comments (PVC) - Labs Labs: Laboratory Tests 10/11/17 10/11/17 10/11/17 23:00 23:00 23:00 WBC 6.4 RBC 4.79 Hgb 14.8 Hct 44.5 MCV 93.0 MCH 31.0 MCHC 33.3 RDW 14.7 Plt Count 185 MPV 7.7 Neut # (Auto) 4.3 Lymph # (Auto) 1.4 L [place] # (Auto) 0.5 Eos # (Auto) 0.1 Baso # (Auto) 0.0 Absolute Nucleated RBC 0.00 Nucleated RBC % 0.0 PT 16.1 H INR 1.4 H APTT 27.5 Sodium 136 Potassium 3.6 Chloride 104 Carbon Dioxide 25 Anion Gap 7.0 BUN 20 Creatinine 0.9 Estimated GFR (MDRD) 80 L Glucose 124 H Calcium 8.7 Total Bilirubin 1.2 H AST 26 ALT 22 Alkaline Phosphatase 35 L Troponin I Total Protein 6.5 L Albumin 3.7 Globulin 2.8 Albumin/Globulin Ratio 1.3 Lipase 40 Urine Color Urine Clarity Urine pH Ur Specific [place] Urine Protein Urine Glucose (UA) Urine Ketones Urine Occult Blood Urine Nitrite Urine Bilirubin Urine Urobilinogen Ur Leukocyte Esterase Ur Microscopic Review Urine Culture Comments 10/11/17 10/11/17 23:00 23:47 WBC RBC Hgb Hct MCV MCH MCHC RDW Plt Count MPV Neut # (Auto) Lymph # (Auto) [place] # (Auto) Eos # (Auto) Baso # (Auto) Absolute Nucleated RBC Nucleated RBC % PT INR APTT Sodium Potassium Chloride Carbon Dioxide Anion Gap BUN Creatinine Estimated GFR (MDRD) Glucose Calcium Total Bilirubin AST ALT Alkaline Phosphatase Troponin I < 0.04 Total Protein Albumin Globulin Albumin/Globulin Ratio Lipase Urine Color YELLOW Urine Clarity CLEAR Urine pH 6.0 Ur Specific [place] 1.020 Urine Protein TRACE Urine Glucose (UA) NEGATIVE Urine Ketones 15 H Urine Occult Blood NEGATIVE Urine Nitrite NEGATIVE Urine Bilirubin NEGATIVE Urine Urobilinogen 0.2 (NORMAL) Ur Leukocyte Esterase NEGATIVE Ur Microscopic Review NOT INDICATED Urine Culture Comments NOT INDICATED - Rads (name of study) CT head Radiology: Prelim report reviewed, See rad report PD MEDICAL DECISION MAKING - ED course Complexity details: reviewed results, re-evaluated patient, considered differential, d/w patient, d/w family ED course: no deficits on initial neurologic exam as well as on reexamination (after tests resulted). Unremarkable test results. Results reviewed with patient and spouse. - Sepsis Event Vital Signs: Vital Signs - 24 hr 10/11/17 10/12/17 21:38 00:40 Temperature 36.8 C 36.6 C Heart Rate 71 68 Respiratory 16 18 Rate Blood Pressure 155/98 H 140/91 H O2 Saturation 96 97 Oxygen O2 Source Room air Departure - Departure Disposition: 01 Home, Self Care Clinical Impression: Dizziness, Weakness Condition: Good Instructions: ED Dizziness [facility], ED Weakness [facility] Follow-Up: Shaan Garcia MD [Primary Care Provider] - Within 1 week Prescriptions: Meclizine [Antivert] 12.5 - 25 mg PO Q6H PRN #20 tablet PRN Reason: Dizziness Discharge Date/Time: 10/12/17 00:40
[2017-10-11] MEDS ORDERED: SODIUM CHLORIDE 0.9% 500 ML IV STA (22:48)
[2017-10-11] MEDS ORDERED: MECLIZINE 12.5 MG TABLET PO STA (22:48)
[2017-10-11 23:12] LABS: BASOPHILS % (AUTO) 0.7 %; EOSINOPHILS # (AUTO) 0.1 10^3/uL (0.0-0.7); EOSINOPHILS % (AUTO) 0.9 %; HGB - HEMOGLOBIN 14.8 g/dL (14.0-18.0); LYMPHOCYTES # (AUTO) 1.4 10^3/uL (1.5-3.5); LYMPHOCYTES % (AUTO) 22.6 %; MEAN CORPUSCULAR HGB CONC 33.3 g/dL (32.0-36.0); MEAN PLATELET VOLUME 7.7 fL (7.4-11.4); MONOCYTES # (AUTO) 0.5 10^3/uL (0.0-1.0); MONOCYTES % (AUTO) 7.7 %; NEUTROPHILS # (AUTO) 4.3 10^3/uL (1.5-6.6); NEUTROPHILS % (AUTO) 68.1 %; PLT - PLATELET COUNT 185 10^3/uL (130-450); RED BLOOD COUNT 4.79 10^6/uL (4.70-6.10); RED CELL DISTRIBUTION WIDTH 14.7 % (12.0-15.0); WHITE BLOOD COUNT 6.4 x10^3/uL (4.8-10.8)
[2017-10-11 23:18] LABS: INR 1.4 (0.8-1.2); PT - PROTHROMBIN TIME 16.1 secs (9.9-12.6)
[2017-10-11 23:26] LABS: ALBUMIN 3.7 g/dL (3.2-5.5); ALBUMIN/GLOBULIN RATIO 1.3 (1.0-2.2); BILIRUBIN,TOTAL 1.2 mg/dL (0.2-1.0); CALCIUM 8.7 mg/dL (8.5-10.3); CREATININE 0.9 mg/dL (0.6-1.2); TOTAL PROTEIN 6.5 g/dL (6.7-8.2)
[2017-10-11 23:55] LABS: BILIRUBIN,URINE NEGATIVE (NEGATIVE); GLUCOSE, URINE (UA) NEGATIVE (NEGATIVE); KETONES,URINE (UA) 15 mg/dL (NEGATIVE); LEUKOCYTE ESTERASE, URINE NEGATIVE (NEGATIVE); NITRITE,URINE NEGATIVE (NEGATIVE); OCCULT BLOOD,URINE NEGATIVE (NEGATIVE); PROTEIN,URINE TRACE mg/dL (NEGATIVE); UROBILINOGEN,URINE 0.2 (NORMAL) E.U./dL (NORMAL)
[2017-10-11 23:57] LABS: CLARITY,URINE CLEAR (CLEAR)
--- NOTE | 2017-10-11 23:59 | CT Report ---
Procedure Date: 10/11/2017 Accession Number: [id number] / [id number] Procedure: CT - Head W/O CPT Code: FULL RESULT: EXAM: CT HEAD EXAM DATE: 10/11/2017 11:16 PM. CLINICAL HISTORY: Dizziness, left-sided weakness. COMPARISON: Head CT 06/20/2012. TECHNIQUE: Multiaxial CT images were obtained from the foramen magnum to the vertex. Reformats: Coronal. IV contrast: None. In accordance with CT protocol optimization, one or more of the following dose reduction techniques were utilized for this exam: automated exposure control, adjustment of mA and/or KV based on patient size, or use of iterative reconstructive technique. FINDINGS: Parenchyma: No intraparenchymal hemorrhage. No evidence of mass, midline shift, or CT findings of infarction. There is mild low-density involving white matter bilateral cerebral hemispheres. Plunkett-white differentiation is distinct. Extraaxial Spaces: Normal for age. No subdural or epidural collections identified. Ventricles: Normal in size and position. Sinuses and Orbits: Paranasal sinuses are well aerated. Status post prior right mastoidectomy. 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 Implant extends to basilar turn of cochlea as before. Other: None. IMPRESSION: No acute intracranial process. RADIA
[2017-10-12] MEDS ORDERED: ACETAMINOPHEN 325 MG TABLET PO STA (00:25)
[2017-10-12 00:49] VITALS: BP 140/91
== END 2017-10-12 00:40 | disposition home or self-care (01) ==
LOC: EDUNIT# → SUPCPDRO 21:38 → ED 21:38
DX: R42 Dizziness and giddiness (principal); R53.1 Weakness; I48.91 Unspecified atrial fibrillation; I45.10 Unspecified right bundle-branch block; Z79.01 Long term (current) use of anticoagulants
CPT/HCPCS: 36415; 70450; 80053; 81003; 83690; 84484; 85025; 85610; 85730; 93005; 96360; 99284; A9270; 81001; 87086

== ENCOUNTER 2017-10-14 14:03 | Outpatient (CLI) | payer MEDICARE, OTHER | END 2017-10-14 14:04 | disposition home or self-care (01) | LOC: LAB.F 14:03 | PROVIDERS: ATTEND Internal Medicine | DX: I48.91 Unspecified atrial fibrillation (principal); Z79.01 Long term (current) use of anticoagulants | CPT/HCPCS: 85610 ==

== ENCOUNTER 2017-10-21 14:20 | Outpatient (CLI) | payer MEDICARE, OTHER | END 2017-10-21 14:21 | disposition home or self-care (01) | LOC: LAB.F 14:20 | PROVIDERS: ATTEND Internal Medicine | DX: I48.91 Unspecified atrial fibrillation (principal); Z79.01 Long term (current) use of anticoagulants | CPT/HCPCS: 85610 ==

== ENCOUNTER 2017-10-31 13:51 | Outpatient (CLI) | payer MEDICARE, OTHER | END 2017-10-31 13:52 | disposition home or self-care (01) | LOC: LAB.F 13:51 | PROVIDERS: ATTEND Internal Medicine | DX: I48.91 Unspecified atrial fibrillation (principal); Z79.01 Long term (current) use of anticoagulants | CPT/HCPCS: 85610 ==

== ENCOUNTER 2017-11-14 15:23 | Outpatient (CLI) | payer MEDICARE, OTHER | END 2017-11-14 15:24 | disposition home or self-care (01) | LOC: LAB.F 15:23 | PROVIDERS: ATTEND Internal Medicine | DX: I48.91 Unspecified atrial fibrillation (principal); Z79.01 Long term (current) use of anticoagulants | CPT/HCPCS: 85610 ==

== ENCOUNTER 2017-11-22 14:42 | Outpatient (CLI) | payer MEDICARE, OTHER | END 2017-11-22 14:43 | disposition home or self-care (01) | LOC: LAB.F 14:42 | PROVIDERS: ATTEND Internal Medicine | DX: I48.91 Unspecified atrial fibrillation (principal); Z79.01 Long term (current) use of anticoagulants | CPT/HCPCS: 85610 ==

== ENCOUNTER 2017-12-20 10:59 | Outpatient (CLI) | payer MEDICARE, OTHER | END 2017-12-20 11:00 | disposition home or self-care (01) | LOC: LAB.F 10:59 | PROVIDERS: ATTEND Internal Medicine | DX: I48.91 Unspecified atrial fibrillation (principal); Z79.01 Long term (current) use of anticoagulants | CPT/HCPCS: 85610 ==

== ENCOUNTER 2018-01-03 10:25 | Outpatient (CLI) | payer MEDICARE, OTHER | END 2018-01-03 10:26 | disposition home or self-care (01) | LOC: LAB.F 10:25 | PROVIDERS: ATTEND Internal Medicine | DX: I48.91 Unspecified atrial fibrillation (principal); Z79.01 Long term (current) use of anticoagulants | CPT/HCPCS: 85610 ==

== ENCOUNTER 2018-01-23 10:46 | Outpatient (CLI) | payer MEDICARE, OTHER | END 2018-01-23 10:47 | disposition home or self-care (01) | LOC: LAB.F 10:46 | PROVIDERS: ATTEND Internal Medicine | DX: I48.91 Unspecified atrial fibrillation (principal); Z79.01 Long term (current) use of anticoagulants | CPT/HCPCS: 85610 ==

== ENCOUNTER 2018-02-06 13:32 | Outpatient (CLI) | payer MEDICARE, OTHER | END 2018-02-06 13:33 | disposition home or self-care (01) | LOC: LAB.F 13:32 | PROVIDERS: ATTEND Internal Medicine | DX: I48.91 Unspecified atrial fibrillation (principal); Z79.01 Long term (current) use of anticoagulants | CPT/HCPCS: 85610 ==

== ENCOUNTER 2018-03-06 11:30 | Outpatient (CLI) | payer MEDICARE, OTHER | END 2018-03-06 11:31 | disposition home or self-care (01) | LOC: LAB.F 11:30 | PROVIDERS: ATTEND Internal Medicine | DX: I48.91 Unspecified atrial fibrillation (principal); Z79.01 Long term (current) use of anticoagulants | CPT/HCPCS: 85610 ==

== ENCOUNTER 2018-03-17 10:21 | Outpatient (CLI) | payer MEDICARE, OTHER | END 2018-03-17 10:22 | disposition home or self-care (01) | LOC: LAB.F 10:21 | PROVIDERS: ATTEND Internal Medicine | DX: I48.91 Unspecified atrial fibrillation (principal); Z79.01 Long term (current) use of anticoagulants | CPT/HCPCS: 85610 ==

== ENCOUNTER 2018-04-07 13:43 | Outpatient (CLI) | payer MEDICARE, OTHER | END 2018-04-07 13:44 | disposition home or self-care (01) | LOC: LAB.F 13:43 | PROVIDERS: ATTEND Internal Medicine | DX: I48.91 Unspecified atrial fibrillation (principal); Z79.01 Long term (current) use of anticoagulants | CPT/HCPCS: 85610 ==

== ENCOUNTER 2018-05-04 11:35 | Outpatient (CLI) | payer MEDICARE, OTHER | END 2018-05-04 11:36 | disposition home or self-care (01) | LOC: LAB.F 11:35 | PROVIDERS: ATTEND Internal Medicine | DX: I48.91 Unspecified atrial fibrillation (principal); Z79.01 Long term (current) use of anticoagulants | CPT/HCPCS: 85610 ==

== ENCOUNTER 2018-05-26 11:24 | Outpatient (CLI) | payer MEDICARE, OTHER | END 2018-05-26 11:25 | disposition home or self-care (01) | LOC: LAB.F 11:24 | PROVIDERS: ATTEND Internal Medicine | DX: I48.91 Unspecified atrial fibrillation (principal); Z79.01 Long term (current) use of anticoagulants | CPT/HCPCS: 85610 ==

== ENCOUNTER 2018-06-12 09:48 | Outpatient (CLI) | payer MEDICARE, OTHER | END 2018-06-12 09:49 | disposition home or self-care (01) | LOC: LAB.F 09:48 | PROVIDERS: ATTEND Internal Medicine | DX: I48.91 Unspecified atrial fibrillation (principal); Z79.01 Long term (current) use of anticoagulants | CPT/HCPCS: 85610 ==

== ENCOUNTER 2018-07-03 11:11 | Outpatient (CLI) | payer MEDICARE, OTHER | END 2018-07-03 11:12 | disposition home or self-care (01) | LOC: LAB.F 11:11 | PROVIDERS: ATTEND Internal Medicine | DX: I48.91 Unspecified atrial fibrillation (principal); Z79.01 Long term (current) use of anticoagulants | CPT/HCPCS: 85610 ==

== ENCOUNTER 2018-07-24 09:34 | Outpatient (CLI) | payer MEDICARE, OTHER | END 2018-07-24 09:35 | disposition home or self-care (01) | LOC: LAB.F 09:34 | PROVIDERS: ATTEND Internal Medicine | DX: I48.91 Unspecified atrial fibrillation (principal); Z79.01 Long term (current) use of anticoagulants | CPT/HCPCS: 85610 ==

== ENCOUNTER 2018-08-14 13:32 | Outpatient (CLI) | payer MEDICARE, OTHER | END 2018-08-14 13:33 | disposition home or self-care (01) | LOC: LAB.F 13:32 | PROVIDERS: ATTEND Internal Medicine | DX: I48.91 Unspecified atrial fibrillation (principal); Z79.01 Long term (current) use of anticoagulants | CPT/HCPCS: 85610 ==

== ENCOUNTER 2018-09-05 14:33 | Outpatient (CLI) | payer MEDICARE, OTHER | END 2018-09-05 14:34 | disposition home or self-care (01) | LOC: LAB.F 14:33 | PROVIDERS: ATTEND Internal Medicine | DX: I48.91 Unspecified atrial fibrillation (principal); Z79.01 Long term (current) use of anticoagulants | CPT/HCPCS: 85610 ==

== ENCOUNTER 2018-10-04 09:35 | Outpatient (CLI) | payer MEDICARE, OTHER | END 2018-10-04 09:36 | disposition home or self-care (01) | LOC: LAB.F 09:35 | PROVIDERS: ATTEND Internal Medicine | DX: I48.91 Unspecified atrial fibrillation (principal); Z79.01 Long term (current) use of anticoagulants | CPT/HCPCS: 85610 ==

== ENCOUNTER 2018-11-14 10:27 | Outpatient (CLI) | payer MEDICARE, OTHER | END 2018-11-14 10:28 | disposition home or self-care (01) | LOC: LAB.S 10:27 | PROVIDERS: ATTEND Internal Medicine | DX: I48.91 Unspecified atrial fibrillation (principal); Z79.01 Long term (current) use of anticoagulants | CPT/HCPCS: 85610 ==

== ENCOUNTER 2018-11-28 09:04 | Outpatient (CLI) | payer MEDICARE, OTHER ==
--- NOTE | 2018-11-28 13:00 | SLEEP CARE CONSULTATION ---
Information from patient questionnaire entered by Devora Anderson. I have reviewed and concur with the information entered by Devora Anderson. This document represents the service I personally performed and the decisions made by me, Ruslan Brito MD, [facility]. History of Present Illness Previous diagnosis: Mild, Obstructive Sleep Apnea-Hypopnea Syndrome AHI: 9.8 Reason for CPAP/BiPAP follow up: annual Accompanied by: Spouse Equipment type: CPAP Equipment obtained from: [facility] Mask style: Full face HPI additional information: HPI: Mr. Ashley returned today with his for follow up of nasal CPAP therapy. He was diagnosed to have mild obstructive sleep apnea-hypopnea syndrome. The patient wears a full face mask. He reports using the device almost nightly and all through the night. The compliance report shows usage in 6 nights out of the past 12 nights, averaging 4.5 hours a night. His says that the machine is broken and he [facility] said they cannot repair it (without taking a look at the machine). She says that there is a message saying service required. The machine is only 2 years old. He complained of no particular problem with the device such as soreness on the face, dry nose, epistaxis, nasal congestion or headache. He thinks that the pressure is comfortable. On the CPAP therapy he notices improvement in his sleep quality, and that he wakes up feeling fresher in the morning and more awake/alert during the day. His notices no snore at all. The average residual AHI is 15.0; and average time in large leak per day is 1.3 hours. The 90th percentile pressure is 11.3 cmH2O. CPAP Compliance Data - Data Reviewed with Patient Average duration of nightly device use: 4.5 Compliance rate %: 50 (30 days) Current pressure setting (cmH2O): 6-12 Humidity settin Heated hose settin Average residual AHI: 15 Average large leak: 1 hr 19 mins Subjective Initial [place] Sleepiness Scale score: 9 Current [place] Sleepiness Scale score: 9 Allergies and Home Medications Home medication list reviewed: Yes Allergy and home medication list: Aspirin 81mg tablet, 1 po qd Diltiazem 120mg tablet, 1 po qd Gabapentin 100mg capsule, 1-2 po qd Meclizine 25mg tablet, 1 q6h prn Prednisone 20mg tablet, 1 po qd Prednisone 5mg tablet, po tid 2 weeks then po bid Tadafil 20mg tablet, 1 po before intercourse Tramadol 50mg tablet, 1 q6h prn Warfarin 2mg tablet, 1 po qd Review of Systems Review of systems same as previous: Yes Impression and Plan IMPRESSION: 1. Obstructive Sleep Apnea-Hypopnea Syndrome, mild, with the patient doing well on nasal CPAP therapy. He has [id number] compliance but significant clinical improvement. This is most likely because the device is broken and he has not gotten any supplies for a long time (which explains the air leak). We are contacting [employer] to have the device sent back to [employer] and to issue him a loaner machine in the meantime. PLAN: 1. Continue with autoCPAP at 6 - 12 cmH2O. 2. Prescription to replace and repair machine. 3. Get a new full face mask. 4. Return in one month for follow up. I spent 100% of this 15 minute visit face to face with the patient with greater than 50% of this was spent time counseling the patient and coordination of care.
== END 2018-11-28 09:05 | disposition home or self-care (01) ==
LOC: SC 09:04
PROVIDERS: ATTEND Internal Medicine Pulmonary Disease
DX: G47.33 Obstructive sleep apnea (adult) (pediatric) (principal)
CPT/HCPCS: 99212; 99213

== ENCOUNTER 2018-12-15 09:24 | Outpatient (CLI) | payer MEDICARE, OTHER | END 2018-12-15 09:25 | disposition home or self-care (01) | LOC: LAB.S 09:24 | PROVIDERS: ATTEND Internal Medicine | DX: I48.91 Unspecified atrial fibrillation (principal); Z79.01 Long term (current) use of anticoagulants | CPT/HCPCS: 85610 ==

== ENCOUNTER 2019-01-15 10:16 | Outpatient (CLI) | payer MEDICARE, OTHER | END 2019-01-15 10:17 | disposition home or self-care (01) | LOC: LAB.S 10:16 | PROVIDERS: ATTEND Internal Medicine | DX: I48.91 Unspecified atrial fibrillation (principal); Z79.01 Long term (current) use of anticoagulants | CPT/HCPCS: 85610 ==

== ENCOUNTER 2019-01-23 14:07 | Outpatient (CLI) | payer MEDICARE, OTHER ==
--- NOTE | 2019-01-23 16:46 | SLEEP CARE CONSULTATION ---
Information from patient questionnaire entered by Devora Anderson. I have reviewed and concur with the information entered by Devora Anderson. This document represents the service I personally performed and the decisions made by me, Ruslan Brito MD, [facility]. History of Present Illness Previous diagnosis: Mild, Obstructive Sleep Apnea-Hypopnea Syndrome AHI: 9.8 Reason for CPAP/BiPAP follow up: other (2 month ) Equipment type: CPAP Equipment obtained from: [facility] Mask style: Full face HPI additional information: HPI: Mr. Ashley returned today with his for follow up of nasal CPAP therapy. He was diagnosed to have mild obstructive sleep apnea-hypopnea syndrome. The patient wears a full face mask. He reports using the device almost nightly but not all through the night. This is because he removes the mask during the night. The compliance report shows usage in 27 nights out of the past 30 nights, averaging 4 hours a night. He complained of no particular problem with the device such as soreness on the face, dry nose, epistaxis, nasal congestion or headache. He thinks that the pressure is comfortable. It is not clear whether he is benefiting from the treatment or not. His notices no snore at all. The average residual AHI is 15, and average time in large leak per day is 1.3 hours. The 90th percentile pressure is 11.3 cmH2O. CPAP Compliance Data - Data Reviewed with Patient Average duration of nightly device use: 4.5 Compliance rate %: 50 Current pressure setting (cmH2O): 6-12 Humidity settin Heated hose settin Average residual AHI: 15 Average large leak: 1 hr 19 mins 27 secs Subjective Patient concerns: reports: dry mouth, nose, throat Initial [place] Sleepiness Scale score: 9 Current [place] Sleepiness Scale score: 9 Allergies and Home Medications Drug allergies reviewed: Yes Home medication list reviewed: Yes Review of Systems Review of systems same as previous: Yes Physical Exam Weight: 185 lb Impression and Plan IMPRESSION: 1. Obstructive Sleep Apnea-Hypopnea Syndrome, mild, with the patient having [id number]-[id number] compliance because he takes the mask off during the night. It is not quite clear why he does that. He has dementia. He does sleep mostly on his side at home. His diagnostic sleep study here 2 years ago showed that most of the respiratory events occurred during supine sleep. PLAN: 1. Continue with autoCPAP at 6 - 12 cmH2O. 2. Repeat the diagnostic sleep study with the patient sleeping only on his side or prone. His was instructed to make him a tennis ball T-shirt. 3. Return in one month for follow up after the sleep study. I spent 100% of this 20 minute visit face to face with the patient with greater than 50% of this was spent time counseling the patient and coordination of care.
== END 2019-01-23 14:08 | disposition home or self-care (01) ==
LOC: SC 14:07
PROVIDERS: ATTEND Internal Medicine Pulmonary Disease
DX: G47.33 Obstructive sleep apnea (adult) (pediatric) (principal)
CPT/HCPCS: 99213; G0463; 99212

== ENCOUNTER 2019-01-29 09:26 | Outpatient (CLI) | payer MEDICARE, OTHER | END 2019-01-29 09:27 | disposition home or self-care (01) | LOC: LAB.S 09:26 | PROVIDERS: ATTEND Internal Medicine | DX: I48.91 Unspecified atrial fibrillation (principal); Z79.01 Long term (current) use of anticoagulants | CPT/HCPCS: 85610 ==

== ENCOUNTER 2019-02-05 10:13 | Outpatient (CLI) | payer MEDICARE, OTHER | END 2019-02-05 10:14 | disposition home or self-care (01) | LOC: LAB.S 10:13 | PROVIDERS: ATTEND Internal Medicine | DX: I48.91 Unspecified atrial fibrillation (principal); Z79.01 Long term (current) use of anticoagulants | CPT/HCPCS: 85610 ==

== ENCOUNTER 2019-03-06 09:47 | Outpatient (CLI) | payer MEDICARE, OTHER | END 2019-03-06 09:48 | disposition home or self-care (01) | LOC: LAB.S 09:47 | PROVIDERS: ATTEND Internal Medicine | DX: I48.91 Unspecified atrial fibrillation (principal); Z79.01 Long term (current) use of anticoagulants | CPT/HCPCS: 85610 ==

== ENCOUNTER 2019-03-16 10:14 | Outpatient (CLI) | payer MEDICARE, OTHER | END 2019-03-16 10:15 | disposition home or self-care (01) | LOC: LAB.S 10:14 | PROVIDERS: ATTEND Internal Medicine | DX: I48.91 Unspecified atrial fibrillation (principal); Z79.01 Long term (current) use of anticoagulants | CPT/HCPCS: 85610 ==

== ENCOUNTER 2019-04-06 11:27 | Outpatient (CLI) | payer MEDICARE, OTHER | END 2019-04-06 11:28 | disposition home or self-care (01) | LOC: LAB.S 11:27 | PROVIDERS: ATTEND Internal Medicine | DX: I48.91 Unspecified atrial fibrillation (principal); Z79.01 Long term (current) use of anticoagulants | CPT/HCPCS: 85610 ==

== ENCOUNTER 2019-04-20 14:41 | Outpatient (CLI) | payer MEDICARE, OTHER | END 2019-04-20 14:42 | disposition home or self-care (01) | LOC: LAB.S 14:41 | PROVIDERS: ATTEND Internal Medicine | DX: I48.91 Unspecified atrial fibrillation (principal); Z79.01 Long term (current) use of anticoagulants | CPT/HCPCS: 85610 ==

== ENCOUNTER 2019-05-10 19:16 | Outpatient (CLI) | payer MEDICARE, OTHER | END 2019-05-10 19:17 | disposition home or self-care (01) | LOC: SC 19:16 | PROVIDERS: ATTEND Internal Medicine Pulmonary Disease | DX: G47.33 Obstructive sleep apnea (adult) (pediatric) (principal); G47.61 Periodic limb movement disorder; I48.91 Unspecified atrial fibrillation | CPT/HCPCS: 95810 ==

== ENCOUNTER 2019-05-28 15:27 | Outpatient (CLI) | payer MEDICARE, OTHER ==
[2019-05-28 16:18] VITALS: BP 114/70
--- NOTE | 2019-05-28 16:18 | SLEEP CARE CONSULTATION ---
Information from patient questionnaire entered by Taniya Pérez. I have reviewed and concur with the information entered by Taniya Pérez. This document represents the service I personally performed and the decisions made by me, Preethi Horne RN, MSN, [employer]. History of Present Illness Previous diagnosis: Mild, Obstructive Sleep Apnea-Hypopnea Syndrome AHI: 9.9 Reason for follow up: with sleep study Equipment type: CPAP Equipment obtained from: [facility] Mask style: Full face Mask brand: Respironics Prior sleep studies: Yes HPI additional information: BARRIE HAJI returns with spouse for follow up and results of the recently performed polysomnography. I explained the pathophysiology behind obstructive sleep apnea. We then spent quite a bit of time discussing different treatment options. For mild obstructive sleep apnea, surgery and oral appliance are alternatives to nasal CPAP therapy but in moderate or severe cases, nasal CPAP is the most effective and reliable treatment. Because apnea is primarily in supine position, then positional management therapy could be effective. Methods discussed such as positioning with pillows, using a T-shirt with tennis balls in the back, and shown commercial products that have a pillow format on back to prevent supine sleep. I reviewed the impact of weight changes on sleep apnea and strongly recommended losing weight. After some discussion, the patient and spouse opted to go with the positional management therapy instead of nasal CPAP therapy. Patient counseled not drink alcohol less than 4 hours before bedtime as it can increase snoring and apnea. Patient was cautioned about risks of drowsy driving until sleepiness symptoms resolve. Patient denies drowsy driving and drives with spouse only . Sleep Study - Results Polysomnography/Home Sleep Study results: The quality of the study is good. The patient had reduced sleep efficiency due to several prolonged awakenings after the sleep onset.. The sleep architecture was abnormal for sleep fragmentation and lack of slow wave sleep (N3). Respiratory monitoring showed mild obstructive sleep apnea-hypopnea (AHI = 9.9) associated with frequent arousals, oxyhemoglobin desaturation and mild hypoxia (cristino oxygen saturation of 88%). The respiratory events occurred almost exclusively during supine sleep (supine AHI = 31.8; non-supine = 3.17). Snore was light in intensity. There was severe periodic leg movement of sleep contributing to the sleep fragmentation. Cardiac rhythm was atrial fibrillation. No abnormal behavior (parasomnia) observed during the night. Subjective Current pressure setting perceived as: comfortable Initial [place] Sleepiness Scale score: 9 Current [place] Sleepiness Scale score: 7 Allergies and Home Medications Known drug allergies: Yes Home medication list reviewed: Yes Allergy and home medication list: Medication Name (generic/name brand) Strength & Dosage Diltiazem 120mg tablet, 1 po qd Warfarin 2mg tablet, 1 po qd Review of Systems Review of systems same as previous: Yes Physical Exam Blood Pressure: 114/70 Heart Rate: 70 O2 Saturation: 98 Height: 5 ft 8 in Weight: 181 lb 9.6 oz Body Mass Index: 27.6 BMI Classification: Overweight Impression and Plan 1. Obstructive Sleep Apnea-Hypopnea Syndrome, mild, with lowest oxygen saturation of 88%. As noted at his last visit, patient has been taking off CPAP in middle of night and not using CPAP consistently through the night. Thus a re- evaluation was completed. As mentioned above, the patient will be started on positional management therapy with a Slumberbump to see if treatment is tolerated better than CPAP. Spouse states she did not make the Tshirt with tennis balls in spine as thought he would take off but thought this might be more comfortable for his to use and keep on. I will have him follow up in 1-2 months to check effectiveness of treatment. If not effective, then I will see how CPAP treatment can be improved. Patient also advised not to nap more than an hour to improve sleep efficiency. Spouse states he sleeps better in later night and wonders if due to sleeping so much during the day. I informed her and patient how any sleep during the day will take away from his night requirement. The goal is to sleep predominately at night in longer periods to get to deeper sleep. 2. 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 Periodic limb movement of sleep (PLMS) is characterized by episodes of repetitive limb movements that occur during sleep and usually involve the lower limbs. The etiology is unknown but can be associated with restless leg syndrome (RLS), neuropathy, spinal cord diseases, kidney disease, rheumatological disorders, narcolepsy, obstructive sleep apnea, and REM sleep behavior disorder. Other factors that can increase PLMS and/or RLS are heredity and iron deficiency as reflected by a low serum ferritin level below 50 to 75mcg / L. Several medications can precipitate or aggravate PLMS such as selective serotonin re- uptake inhibitor antidepressants, tricyclic antidepressants, lithium, and dopamine receptor antagonists with the exception of bupropion. Caffeine can also aggravate PLMS and should be avoided. Sleep hygiene methods can also improve sleep as well as lifestyle changes such as regular exercise. Patient was advised that further evaluation is indicated. Spouse states he has chronic back pain, this could be causing his limb movements and sleep fragmentation. Thus he is advised to follow up with Dr. Garcia for further evaluation. With better control of his PLMS, he may sleep better overall. 3. Arrhythmia, atrial fibrillation noted on sleep study. Patient is currently being treated for this. A copy of tracing attached to report. * Positional therapy with slumber bump belt * Attempt to lose weight. * Naps to be restricted to 1 hour and before 3 pm * Avoid alcohol consumption near bedtime. * Follow up with Dr. Garcia about back pain as a possible cause of PLMS * The patient is again cautioned about driving until sleepiness completely resolves. * Return 1-2 months Time Spent with Patient (minutes): 33 I spent 100% of this visit face to face with the patient with greater than 50% of this was spent time counseling the patient and coordination of care.
== END 2019-05-28 15:28 | disposition home or self-care (01) ==
LOC: SC 15:27
PROVIDERS: ATTEND Nurse Practitioner Family
DX: G47.33 Obstructive sleep apnea (adult) (pediatric) (principal); G47.61 Periodic limb movement disorder; E66.3 Overweight; Z68.27 Body mass index [BMI] 27.0-27.9, adult; I49.9 Cardiac arrhythmia, unspecified
CPT/HCPCS: 99214; G0463; 99212

== ENCOUNTER 2019-06-15 09:10 | Outpatient (CLI) | payer MEDICARE, OTHER | END 2019-06-15 09:11 | disposition home or self-care (01) | LOC: LAB.S 09:10 | PROVIDERS: ATTEND Internal Medicine | DX: I48.91 Unspecified atrial fibrillation (principal); Z79.01 Long term (current) use of anticoagulants | CPT/HCPCS: 85610 ==

== ENCOUNTER 2019-06-29 10:19 | Outpatient (CLI) | payer MEDICARE, OTHER | END 2019-06-29 10:20 | disposition home or self-care (01) | LOC: LAB.S 10:19 | PROVIDERS: ATTEND Internal Medicine | DX: I48.91 Unspecified atrial fibrillation (principal); Z79.01 Long term (current) use of anticoagulants | CPT/HCPCS: 85610 ==

== ENCOUNTER 2019-07-09 09:27 | Outpatient (CLI) | payer MEDICARE, OTHER | END 2019-07-09 09:28 | disposition home or self-care (01) | LOC: LAB.S 09:27 | PROVIDERS: ATTEND Internal Medicine | DX: I48.91 Unspecified atrial fibrillation (principal); Z79.01 Long term (current) use of anticoagulants | CPT/HCPCS: 85610 ==

== ENCOUNTER 2019-08-07 10:56 | Outpatient (CLI) | payer MEDICARE, OTHER | END 2019-08-07 10:57 | disposition home or self-care (01) | LOC: LAB 10:56 | PROVIDERS: ATTEND Internal Medicine | DX: I48.91 Unspecified atrial fibrillation (principal); Z79.01 Long term (current) use of anticoagulants | CPT/HCPCS: 85610 ==

== ENCOUNTER 2019-08-17 11:16 | Outpatient (CLI) | payer MEDICARE, OTHER | END 2019-08-17 11:17 | disposition home or self-care (01) | LOC: LAB 11:16 | PROVIDERS: ATTEND Internal Medicine | DX: I48.91 Unspecified atrial fibrillation (principal); Z79.01 Long term (current) use of anticoagulants | CPT/HCPCS: 85610 ==

== ENCOUNTER 2019-09-17 11:19 | Outpatient (CLI) | payer MEDICARE, OTHER | END 2019-09-17 11:20 | disposition home or self-care (01) | LOC: LAB 11:19 | PROVIDERS: ATTEND Internal Medicine | DX: I48.91 Unspecified atrial fibrillation (principal); Z79.01 Long term (current) use of anticoagulants | CPT/HCPCS: 85610 ==

== ENCOUNTER 2019-10-02 10:37 | Outpatient (CLI) | payer MEDICARE, OTHER | END 2019-10-02 10:38 | disposition home or self-care (01) | LOC: LAB.S 10:37 | PROVIDERS: ATTEND Internal Medicine | DX: I48.91 Unspecified atrial fibrillation (principal); Z79.01 Long term (current) use of anticoagulants | CPT/HCPCS: 85610 ==

== ENCOUNTER 2019-10-16 12:59 | Outpatient (CLI) | payer MEDICARE, OTHER | END 2019-10-16 13:00 | disposition home or self-care (01) | LOC: LAB.S 12:59 | PROVIDERS: ATTEND Internal Medicine | DX: I48.91 Unspecified atrial fibrillation (principal); Z79.01 Long term (current) use of anticoagulants | CPT/HCPCS: 85610 ==

== ENCOUNTER 2019-12-13 09:05 | Outpatient (CLI) | payer MEDICARE, OTHER | END 2019-12-13 09:06 | disposition home or self-care (01) | LOC: LAB.S 09:05 | PROVIDERS: ATTEND Internal Medicine | DX: I48.91 Unspecified atrial fibrillation (principal); Z79.01 Long term (current) use of anticoagulants | CPT/HCPCS: 85610 ==

== ENCOUNTER 2019-12-27 11:11 | Outpatient (CLI) | payer MEDICARE, OTHER | END 2019-12-27 11:12 | disposition home or self-care (01) | LOC: LAB.S 11:11 | PROVIDERS: ATTEND Internal Medicine | DX: I48.91 Unspecified atrial fibrillation (principal); Z79.01 Long term (current) use of anticoagulants | CPT/HCPCS: 85610 ==

== ENCOUNTER 2020-01-02 11:54 | Outpatient (CLI) | payer MEDICARE, OTHER ==
--- NOTE | 2020-01-02 15:29 | XRAY Report ---
PROCEDURE: Wrist 3 View RT INDICATIONS: SWELLING OF THUMB JOINT TECHNIQUE: 3 views of the wrist were acquired. COMPARISON: None FINDINGS: Bones: No fractures or dislocations. No suspicious bony lesions. First CMC degenerative narrowing with areas of subchondral cyst formation are identified similar appearance is noted at the ulna stylo id. Radiocarpal narrowing is also present. Soft tissues: No suspicious soft tissue calcifications. IMPRESSION: First CMC arthritic narrowing as above. Reviewed by: Susi Puckett MD on 01/02/2020 3:28 PM PDT Approved by: Susi Puckett MD on 01/02/2020 3:28 PM PDT Station ID: [id number]
--- NOTE | 2020-01-02 15:29 | XRAY Report ---
PROCEDURE: Hand 3 View RT INDICATIONS: SWELLING OF THUMB JOINT TECHNIQUE: 3 views of the hand(s) acquired. COMPARISON: Wrist x-ray 01/02/2020 FINDINGS: Bones: No fractures or dislocations. No suspicious bony lesions. Moderate first CMC degenerative n arrowing as well as overall moderate distal DIP narrowing. Minimal scattered areas of periarticular l ucency are noted particularly at the DIP joints of the second through fifth digit. Small periarticula r osteophytes are present. Soft tissues: No suspicious soft tissue calcifications. IMPRESSION: There is a persistent density and IP arthritic narrowing as above. Periarticular lucencies are presen t as above. These could represent areas of small subchondral cysts. Some developing small erosions ca nnot be definitively excluded. Reviewed by: Susi Puckett MD on 01/02/2020 3:27 PM PDT Approved by: Susi Puckett MD on 01/02/2020 3:27 PM PDT Station ID: [id number]
== END 2020-01-02 11:55 | disposition home or self-care (01) ==
LOC: DI.S 11:54
PROVIDERS: ATTEND Nurse Practitioner Family
DX: M79.89 Other specified soft tissue disorders (principal); M19.041 Primary osteoarthritis, right hand; M19.031 Primary osteoarthritis, right wrist

== ENCOUNTER 2020-01-22 12:48 | Outpatient (CLI) | payer MEDICARE, OTHER | END 2020-01-22 12:49 | disposition home or self-care (01) | LOC: LAB.S 12:48 | PROVIDERS: ATTEND Internal Medicine | DX: I48.91 Unspecified atrial fibrillation (principal); Z79.01 Long term (current) use of anticoagulants | CPT/HCPCS: 85610 ==

== ENCOUNTER 2020-02-28 11:47 | Outpatient (CLI) | payer MEDICARE, OTHER ==
[2020-02-28 15:04] LABS: INR 2.1 (0.8-1.2); PT - PROTHROMBIN TIME 22.9 secs (9.9-12.6)
== END 2020-02-28 11:48 | disposition home or self-care (01) ==
LOC: LAB.S 11:47
PROVIDERS: ATTEND Internal Medicine
DX: I48.91 Unspecified atrial fibrillation (principal); Z79.01 Long term (current) use of anticoagulants
CPT/HCPCS: 85610

== ENCOUNTER 2020-03-13 08:57 | Outpatient (CLI) | payer MEDICARE, OTHER | END 2020-03-13 08:58 | disposition home or self-care (01) | LOC: LAB.S 08:57 | PROVIDERS: ATTEND Internal Medicine | DX: I48.91 Unspecified atrial fibrillation (principal); Z79.01 Long term (current) use of anticoagulants | CPT/HCPCS: 85610 ==

== ENCOUNTER 2020-03-15 10:37 | Outpatient (CLI) | payer MEDICARE, OTHER | END 2020-03-15 10:38 | disposition home or self-care (01) | LOC: LAB.S 10:37 | PROVIDERS: ATTEND Internal Medicine | DX: I48.91 Unspecified atrial fibrillation (principal); Z79.01 Long term (current) use of anticoagulants | CPT/HCPCS: 85610 ==

== ENCOUNTER 2020-05-06 13:03 | Outpatient (CLI) | payer MEDICARE, OTHER | END 2020-05-06 13:04 | disposition home or self-care (01) | LOC: LAB.S 13:03 | PROVIDERS: ATTEND Internal Medicine | DX: I48.91 Unspecified atrial fibrillation (principal); Z79.01 Long term (current) use of anticoagulants | CPT/HCPCS: 85610 ==

== ENCOUNTER 2020-06-11 14:53 | Outpatient (CLI) | payer MEDICARE, OTHER | END 2020-06-11 14:54 | disposition home or self-care (01) | LOC: LAB.S 14:53 | PROVIDERS: ATTEND Internal Medicine | DX: I48.91 Unspecified atrial fibrillation (principal); Z79.01 Long term (current) use of anticoagulants | CPT/HCPCS: 85610 ==

== ENCOUNTER 2020-06-19 15:26 | Outpatient (CLI) | payer MEDICARE, OTHER ==
[2020-06-19 20:04] LABS: ALBUMIN 4.1 g/dL (3.2-5.5); BILIRUBIN,DIRECT 0.2 mg/dL (0.1-0.5); BILIRUBIN,TOTAL 1.1 mg/dL (0.2-1.0); TOTAL PROTEIN 7.2 g/dL (6.7-8.2)
== END 2020-06-19 15:27 | disposition home or self-care (01) ==
LOC: LAB.S 15:26
PROVIDERS: ATTEND Physician Assistant Medical
DX: B35.1 Tinea unguium (principal); Z79.899 Other long term (current) drug therapy
CPT/HCPCS: 36415; 80076; 82565; 84520

== ENCOUNTER 2020-07-19 05:41 | Outpatient (CLI) | payer MEDICARE, OTHER | END 2020-07-19 05:42 | disposition EMS.NT | LOC: EMS 05:41 | DX: R10.9 Unspecified abdominal pain (principal); R11.10 Vomiting, unspecified ==

== ENCOUNTER 2020-07-19 15:52 | Outpatient (CLI) | payer MEDICARE, OTHER | END 2020-07-19 15:53 | disposition home or self-care (01) | LOC: LAB.S 15:52 | PROVIDERS: ATTEND Internal Medicine | DX: I48.91 Unspecified atrial fibrillation (principal); Z79.01 Long term (current) use of anticoagulants | CPT/HCPCS: 85610 ==

== ENCOUNTER 2020-07-19 16:22 | Outpatient (CLI) | payer MEDICARE, OTHER | END 2020-07-19 16:23 | disposition short-term general hospital (02) | LOC: EMS 16:22 | DX: R41.82 Altered mental status, unspecified (principal) | CPT/HCPCS: A0425; A0429 ==